=== PATIENT | male | born 1980 | race Caucasian/White ===

== ENCOUNTER 2019-06-22 17:34 | Emergency (ER) | payer OTHER ==
[~2019-06-22] VITALS: Ht 185.4 cm; Wt 125.0 kg
[2019-06-22] MEDS ORDERED: AMOX1TAB61 PO (18:07)
--- NOTE | 2019-06-22 18:07 | PHYS DOC ---
Adult General Chief Complaint Chief Complaint: EARACHE/EAR PAIN HPI HPI 39-year-old male presents with left earache. Patient has had intermittent discomfort and stuffy feeling in the left ear for a couple of weeks. He started to have consistent pain yesterday and began to be concerned he has infection. Marin tristan has had infections as an adult, but it is been several years. He has no other symptoms. He denies fever or chills. Review of Systems Review of Systems Constitutional: Denies fever or chills [] Eyes: Denies change in visual acuity, redness, or eye pain [] HENT: Left ear pain. Denies nasal congestion or sore throat [] Respiratory: Denies cough or shortness of breath [] Cardiovascular: No additional information not addressed in HPI [] GI: Denies abdominal pain, nausea, vomiting, bloody stools or diarrhea [] : Denies dysuria or hematuria [] Musculoskeletal: Denies back pain or joint pain [] Integument: Denies rash or skin lesions [] Neurologic: Denies headache, focal weakness or sensory changes [] Endocrine: Denies polyuria or polydipsia [] All other systems were reviewed and found to be within normal limits, except as documented in this note. Allergies Allergies Allergies Coded Allergies Type Severity Reaction Last Updated Verified No Known Drug Allergies 06/22/19 No Physical Exam Physical Exam Constitutional: Well developed, well nourished, no acute distress, non-toxic appearance. [] HENT: Normocephalic, atraumatic, bilateral external ears normal, oropharynx moist, no oral exudates, nose normal. Tympanic erythematous, bulging and with small rupture. [] Eyes: PERRLA, EOMI, conjunctiva normal, no discharge. [] Neck: Normal range of motion, no tenderness, supple, no stridor. [] Cardiovascular: Heart rate regular rhythm, no murmur [] Lungs & Thorax: Bilateral breath sounds clear to auscultation [] Abdomen: Bowel sounds normal, soft, no tenderness, no masses, no pulsatile masses. [] Skin: Warm, dry, no erythema, no rash. [] Back: No tenderness, no CVA tenderness. [] Extremities: No tenderness, no cyanosis, no clubbing, ROM intact, no edema. [] Neurologic: Alert and oriented X 3, normal motor function, normal sensory function, no focal deficits noted. [] Psychologic: Affect normal, judgement normal, mood normal. [] EKG EKG [] Radiology/Procedures Radiology/Procedures [] Course & Med Decision Making Course & Med Decision Making Pertinent Labs and Imaging studies reviewed. (See chart for details) The patient appears to have a left otitis media with eardrum rupture. I'll advise that he avoid getting his ears wet or any kind of swimming. I will treat him with Augmentin for 10 days. He is stable for discharge at this time. [] Dragon Disclaimer Dragon Disclaimer This electronic medical record was generated, in whole or in part, using a voice recognition dictation system. Departure Departure: Impression: Primary Impression: Left otitis media with spontaneous rupture of eardrum Disposition: HOME, SELF-CARE Condition: STABLE Referrals: NORMA GUTIERRES (PCP) Patient Instructions: Otitis Media, Adult, [id number] Scripts Amoxicillin/Potassium Clav (AUGMENTIN 875-125 TABLET) 1 Each Tablet 1 TAB PO BID for ear infection for 10 Days, #20 TAB 0 Refills Prov: SHERIN GARRETT DO 06/22/19 SHERIN GARRETT DO Jun 22, 2019 18:07
[2019-06-22 18:14] VITALS: BP 134/89
== END 2019-06-22 18:13 | disposition home or self-care (01) ==
LOC: ER 17:34
DX: H66.92 Otitis media, unspecified, left ear (principal); H72.92 Unspecified perforation of tympanic membrane, left ear
CPT/HCPCS: 99283